=== PATIENT | female | born 1945 | race Caucasian/White ===

== ENCOUNTER → 2018-03-07 | Outpatient (CLI) | payer OTHER ==
[~2018-03-07] MED LIST: IOPAMIDOL (ISOVUE-300) 100 ML BTL ONE
== END ==
LOC: FIMAGING 13:47
PROVIDERS: ATTEND Internal Medicine
DX: K57.20 Diverticulitis of large intestine with perforation and abscess without bleeding (principal); R93.89 Abnormal findings on diagnostic imaging of other specified body structures
CPT/HCPCS: 74177; Q9967; 82565-PO

== ENCOUNTER → 2018-03-15 | Outpatient (CLI) | payer OTHER | LOC: FIMAGING 09:54 | PROVIDERS: ATTEND Internal Medicine Infectious Disease | DX: K57.20 Diverticulitis of large intestine with perforation and abscess without bleeding (principal); R05 Cough | CPT/HCPCS: 71250; 74177; Q9967 ==